=== PATIENT | female | born 1975 | race Caucasian/White ===

== ENCOUNTER 2018-12-10 11:24 | Emergency (ER) | payer SELFPAY ==
[2018-12-10 11:40] VITALS: BP 131/93; PULSE 84; RESP 16; TEMP 36.6; O2SAT 100
--- NOTE | 2018-12-10 11:50 | DI.RAD_ITS ---
SYMPTOMS/DIAGNOSIS: TRAUMA, ANKLE AND FOOT PAIN RIGHT ANKLE AND RIGHT FOOT: Three views of the ankle and three views of the foot were obtained. There appears to be soft tissue swelling of the ankle. There are marked degenerative changes of the joints of the ankle. No acute fracture seen. No fracture seen involving the bones of the foot.
--- NOTE | 2018-12-10 11:58 | ED.GENADUL_ITS ---
Discharge Plan Disposition Patient Disposition: HOME Condition: Stable Discharge Details Chief Complaint: Orthopedic Clinical Impression: Ankle pain Primary Care Provider: Nicko Wadsworth ED Provider: Karla Rosales Home Meds and New Rx's Prescriptions: Continued naproxen 375 MG tablet,delayed release (DR/EC) 375 mg PO BID PRNQty: 14 RF: 0 Discharge Instructions Instructions: Ankle Sprain (ED) Additional Instructions: Please return immediately to the emergency department if you develop any new or worsening symptoms or if you become otherwise concerned. It is extremely important that you make an appointment to be seen in follow-up for this visit by your primary care doctor soon as possible. Referrals: Nicko Wadsworth, DO [Primary Care Provider] - Discharge Data Discharge Date/Time-TO BE ENTERED AT DEPARTURE: 12/10/18 13:43 Medical Decision Making Rosi Morales is a 42 y/o woman with a history of kidney stones presenting to the emergency department with ankle pain after mechanical fall JPTA. On exam Pt is well and non-toxic appearing. DP pulses intact and symmetric. Right ankle with TTP over medial and lateral malleolus with edema over medial mallelous, also with TTP diffusely over dorsal foot. Cannot range ankle 2/2 pain. No skin wound. Ranges toes without issue. No midshaft or proximal tibia/fibula TTP. Concern for ankle/foot fx vs sprain. Exam/hx not c/w physiologic/non-mechanical fall, infectious etiology, significant trauma to the head/neck/thorax/abdomen, maisonneuve fx. Plan for xrays. Xrays negative. Pt reports that she has her own crutches in the car and does need another set. Plan for ankle brace, weightbearing as tolerated, outpt f/u with PCP/ortho. I had a lengthy discussion with the pt re: RTED precautions, home care, and importance of outpt f/u. Pt vebalized understanding of the plan and is amenable, Pt discharged to home with clear plan for outpt f/u. All questions were answered. Medical Records Medical records reviewed: Yes I reviewed the patient's medical records. Imaging Data Radiologic Study: Attestation: I personally reviewed and interpreted this imaging study as follows: Radiologist's impression: RIGHT ANKLE AND RIGHT FOOT: Three views of the ankle and three views of the foot were obtained. There appears to be soft tissue swelling of the ankle. There are marked degenerative changes of the joints of the ankle. No acute fracture seen. No fracture seen involving the bones of the foot. HPI General Mode of arrival: wheelchair . Date/Time Provider Initiated Documentation: 12/10/18 11:50 . Limitations to Documentation: no limitations . Information obtained by: patient, family, RN notes reviewed and old records reviewed . HPI Narrative: Rosi Morales is a 42 y/o woman with a history of kidney stones presenting to the emergency department with ankle pain. Patient reports that last night she tripped while going downstairs, and fell one step down to the ground. She reports ankle pain since the fall. Denies any other pain or injury, states that she did not hit her head, no LOC. Pt reports that she lost her balance and fell, no preceding symptoms. No prior injuries to the ankle. Related Data Home Medications Medication Instructions Recorded Confirmed naproxen 375 mg PO BID PRN #14 tablet. 11/28/17 12/10/18 Previous Rx's Medication Instructions Recorded naproxen 375 mg PO BID PRN #14 tablet. 11/28/17 Allergies Allergy/AdvReac Type Severity Reaction Status Date / Time No Known Allergies Allergy Unverified 12/10/18 11:46 General Stated Complaint: Orthopedic ALEJANDRA: 4 Review of Systems Review of Systems Constitutional: denies fevers Eyes: denies eye pain ENT: denies facial pain, dental pain, sore throat Cardiovascular: denies chest pain Respiratory: denies SOB GI: denies abdominal pain, vomiting : denies flank pain MSK: denies back pain, neck pain, arthralgias other than right ankle Skin: denies skin wound Neuro: denies headaches, numbness, weakness [facility], LAT[facility] Medical History Tubal ligation status (Acute) Kidney stone (Chronic) Surgical History Hx of appendectomy (Chronic) Social History Smoking/Tobacco Use Status: Current every day Tobacco Type: e-cigarettes Alcohol Intake: never Drug use: Occasionally Substance use type: marijuana Do you feel safe at home: Yes Do you feel safe in your relationship?: Yes Exam Narrative Exam Narrative: Constitutional: well and [id number], pleasant, conversi ng normally HENT: head atraumatic/normocephalic/normal inspection, mucous membranes moist Eyes: conjunctiva normal, sclera normal, pupils 3mm b/l Neck: no stridor, normal ROM, trachea midline Resp: normal work of breathing Cardio: normal rate, normal rhythm Skin: warm, dry, normal color, no rash Neuro: alert, not altered, grossly non-focal, normal tone Ext: DP pulses intact and symmetric. Right ankle with TTP over medial and lateral malleolus with edema over medial mallelous, also with TTP diffusely over dorsal foot. Cannot range ankle 2/2 pain. No skin wound. Ranges toes without issue. No midshaft or proximal tibia/fibula TTP. Psych: normal mood, normal affect, normal behavior Course Vital Signs Temperature 36.6 C 12/10/18 11:40 Pulse 84 12/10/18 11:40 Respiratory Rate 16 12/10/18 11:40 Blood Pressure 131/93 H 12/10/18 11:40 Pulse Oximetry 100 12/10/18 11:40 Temperature 36.6 C 12/10/18 11:40 Temperature Source Skin 12/10/18 11:40 Pulse 84 12/10/18 11:40 Respiratory Rate 16 12/10/18 11:40 Respiratory Effort Non-Labored 12/10/18 11:44 Blood Pressure 131/93 H 12/10/18 11:40 Blood Pressure Position Sitting 12/10/18 11:40 Pulse Oximetry 100 12/10/18 11:40 Oxygen Delivery Method Room Air 12/10/18 11:40 Oxygen Flow Rate 0 12/10/18 11:40 End Tidal Co2 8 12/10/18 11:40
[2018-12-10] MEDS: Ibuprofen 400 MG TAB PO (13:26)
[2018-12-10 13:35] VITALS: BP 131/93; PULSE 84; RESP 16; TEMP 36.6; O2SAT 100
== END 2018-12-10 13:43 | disposition home or self-care (01) ==
LOC: ER 13:54
PROVIDERS: Emergency Provider Student in an Organized Health Care Education/Training Program; PCP Emergency Medicine
DX: M79.671 Pain in right foot (principal); M25.571 Pain in right ankle and joints of right foot; W10.8XXA Fall (on) (from) other stairs and steps, initial encounter
CPT/HCPCS: 29515; 99284; 73610; 73630; 99282; L1902

== ENCOUNTER 2022-10-12 12:56 | Outpatient (CLI) | payer SELFPAY ==
[2022-10-13 10:15] LABS: HBs Antibody, Quant 3.8 mIU/mL (See Note); Hepatitis B Surface Ab Negative (See Note)
[2022-10-13 10:39] LABS: Varicella IgG Antibody Positive (See Note)
[2022-10-13 10:43] LABS: Measles IgG Antibody Positive (See Note); Mumps Antibody IgG Positive (See Note); Rubella IgG Ab (UVM) Positive (See Note)
[2022-10-14 13:30] LABS: TB Interpretation Negative (Negative)
== END 2022-10-12 12:57 | disposition home or self-care (01) ==
LOC: LBO 12:59
PROVIDERS: Visit Provider Nurse Practitioner Family
DX: Z02.1 Encounter for pre-employment examination (principal); Z11.59 Encounter for screening for other viral diseases; Z11.1 Encounter for screening for respiratory tuberculosis; Z01.84 Encounter for antibody response examination
CPT/HCPCS: 36415; 86706; 86787; 86480; 86735; 86762; 86765

== ENCOUNTER 2023-07-15 07:10 | Emergency (ER) | payer OTHER, SELFPAY ==
--- NOTE | 2023-07-15 07:13 | ED.GENADUL_ITS ---
HPI General Stated Complaint: [facility] Mode of arrival: ambulatory. ALEJANDRA: 4 Date/Time Provider Initiated Documentation: 07/15/23 07:13. Limitations to Documentation: no limitations. Information obtained by: patient and family. HPI Narrative: Time seen was 745 in bed 8. The patient is a 47-year-old -0-1-2 who is perimenopausal and works here. 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 She tells me she is had 10 days of vaginal bleeding approximately 1 pad every 2 hours. She was seen at [facility] and was told she might need an ablation but was not started on any hormonal therapy. She is complaining of feeling weak and dizzy and some lower abdominal cramping. She denies any chest pain or shortness of breath. Her pain is 6 out of 10 in s everity and located in the lower abdomen. It comes and goes but she denies any aggravating or alleviating factors. She does feel weak and dizzy more when she stands. She tells me that her abdominal/pelvic pain radiates to the low back. She has had a bilateral tubal ligation. The patient denies any other bleeding such as epistaxis or gum bleeding. No easy bruising. She is not on therapeutic anticoagulants. Related Data Home Medications Medication Instructions Recorded Confirmed norethindrone acetate 5 mg tablet 5 mg PO BID 7 days #90 tabs 07/15/23 sulfamethoxazole 800 1 tab PO Q12H #14 tabs 07/15/23 mg-trimethoprim 160 mg tablet (Bactrim DS) Previous Rx's Medication Instructions Recorded norethindrone acetate 5 mg tablet 5 mg PO BID 7 days #90 tabs 07/15/23 sulfamethoxazole 800 1 tab PO Q12H #14 tabs 07/15/23 mg-trimethoprim 160 mg tablet (Bactrim DS) Allergies Allergy/AdvReac Type Severity Reaction Status Date / Time No Known Allergies Allergy Unverified 07/15/23 07:21 Review of Systems Narrative: see hpi PFSH All Active Problems Abnormal vaginal bleeding (Acute) UTI (urinary tract infection) (Acute) Medical History Kidney stone Surgical History Tubal ligation status Hx of appendectomy Social History Smoking/Tobacco Use Status: Current every day Tobacco Type: e-cigarettes Smoking risk assessment performed?: Yes Alcohol Intake: never Drug use: Occasionally Substance use type: marijuana Do you feel safe at home: Yes Do you feel safe in your relationship?: Yes Exam Const General: cooperative, healthy appearing, comfortable, no acute distress, well developed, well groomed and well hydrated Nutritional Appearance: average body habitus and well nourished Orientation: alert, awake and oriented x3 HENMT Head: normal to inspection, normocephalic and atraumatic Ears: hearing grossly normal bilaterally and external ears normal General nose exam: external nose normal, nares normal and no nasal discharge Face and sinus: normal facial exam, sinuses nontender and face symmetric Mouth: oral mucosae normal, lip normal, tongue normal, oropharynx normal, moist mucous membranes and other (Normal phonation. The patient is handling secretions.) Throat: posterior oropharynx normal and uvula midline Eyes General: appearance normal, both eyes and all related structures Eyelids: eyelids normal Conjunctivae: conjunctivae normal Sclera: sclerae normal Cornea: corneas normal Pupils: PERRL EOM: EOM intact bilaterally and No nystagmus Neck Neck: normal visual inspection, full ROM, no lymphadenopathy, no meningeal signs, trachea midline and supple Lymphatic: no lymphadenopathy noted Chest Chest: normal inspection of the chest Resp Effort & Inspection: normal respiratory effort, able to speak in complete sentences, no audible wheezes, no nasal flaring, no respiratory distress, no retractions, no stridor, not tachypneic, no tracheal deviation, no use of accessory muscles, No prolonged expiratory phase and other (Normal inspiratory to expiratory ratio.) Auscultation: clear to auscultation bilaterally, no rales, no rhonchi, no wheezes and no rubs Tactile Fremitus: tactile fremitus absent Cardio Jugular venous pressure: no JVD Palpation: normal PMI Rate: regular rate Rhythm: regular rhythm Heart Sounds: S1 normal, S2 normal, no gallops, no murmurs and no rubs GI Inspection: normal to inspection and non-distended Palpation: soft, no hepatosplenomegaly, no guarding and nontender Percussion: normal to percussion Auscultation: normal bowel sounds General: No CVA tenderness Back/Spine/Pelvis Back: no CVA tenderness and No back tenderness Cervical Spine: normal cervical lordosis, cervical ROM normal, No cervical muscular tenderness, No pain with cervical ROM, No cervical spinal tenderness and No step off deformity Thoracic/Lumbar Spine: thoracic and lumbar spine normal to inspection, No thoracic spinal tenderness and No lumbar spinal tenderness Pelvis: no pain with anterior-posterior compression and no pain with lateral compression Skin General skin exam: no rashes or lesions noted, turgor normal, no petechiae, no purpura and other (Skin is normal for ethnicity.) Lesions: no lesions Rashes: no rashes Trauma: no lacerations or abrasions Neuro General: patient alert, patient awake, patient oriented x3, moves all extremities, no meningeal signs, no focal motor deficits and CN's II-XI intact bilaterally Cranial Nerves: CN's II-XI intact bilaterally, PERRL, accommodation normal, EOM intact bilaterally, no nystagmus, facial strength normal, tongue midline, hearing normal and no nystagmus Cognition: normal cognition Speech: speech normal Gait: normal gait Motor: muscle tone normal throughout and strength 5/5 throughout Sensory Exam: no sensory deficits noted Extrem General: normal to inspection, full ROM, capillary refill normal, no clubbing, cyanosis or edema and no calf tenderness Psych Appearance: grossly normal Affect: normal affect Attitude: cooperative Thought Process: normal Thought Content: normal Insight: insight good Judgment: judgment good Other: The patient appears to have capacity make medical decisions. Course 9:10 AM I have spoken with Dr. Phelps from [facility]. She recommended the patient be started on Aygestin 5 mg every 12 hours for the bleeding. She suggested that the patient increase to 10 mg twice daily after 2 to 3 days if the bleeding continues. I notified the patient who would like to follow-up with Dr. Phelps this week. I have also notified her that she has evidence of a urinary tract infection. She has had 1 distantly in the past but denies any dysuria currently. She has no known drug allergies and I will start her on Bactrim DS 1 p.o. twice daily. I have advised patient to take a probiotic. I have advised her that if she is asymptomatic, she can discontinue after 3 days. I have advised her that a urine culture is pending. The patient requested a work note. The patient and her voiced understanding agreement with the discharge plan. All her questions and concerns were addressed prior to discharge. Medical Decision Making This is a 47-year-old female who presents with 10 days of significant vaginal bleeding. She was seen at [facility] and no medication was given. She was told she might need an ablation. 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 She is complaining of generalized weakness and dizziness as well as bilateral lower abdominal cramping which is 5 out of 10 in severity. The dizziness is worse with standing. She tells me that she is saturating a pad every 2 hours. She does have a history of a bilateral tubal ligation and appendectomy. She denies any chest pain or shortness of breath. She does not have a history of anemia. She is not on therapeutic anticoagulants. Her dizziness is worse with standing. She does. She is perimenopausal. My plan is to obtain IV access and give her IV fluids. We will type and screen her. I will check a to rule out miscarriage or ectopic. We will check a CBC for anemia leukocytosis and left shift. We will check her electrolytes and renal function as well as a urinalysis. I will likely consult [facility] after her results. I do not see an indication for CT scanning and ultrasound is not available because it is the weekend. Differential Diagnosis Differential Diagnosis: Dysfunctional uterine bleeding, perimenopausal bleeding, anemia, coagulopat Medical Records Medical records reviewed: Yes I reviewed the patient's medical records. Lab Data Lab results reviewed: Yes I reviewed the patient's lab results. Lab results narrative: Normal H&H Quality:SDOH Health Related Social Needs: No Data to Display Discharge Plan Disposition Patient Disposition: Home Condition: Improving Discharge Details Clinical Impression: UTI (urinary tract infection), Abnormal vaginal bleeding Primary Care Provider: None,None ED Provider: Marquita Carney Home Meds and New Rx's Prescriptions: New norethindrone acetate 5 mg tablet 5 mg PO BID 7 Days Qty: 90 0RF Rx Instructions: If bleeding continues after 2 to 3 days increase to 2 tablets (10 mg) every 12 hours. sulfamethoxazole-trimethoprim [Bactrim DS] 800-160 mg tablet 1 tab PO Q12H Qty: 14 0RF Rx Instructions: May stop after 3 days if symptoms have resolved Discontinued naproxen 375 MG tablet,delayed release (DR/EC) 375 mg PO BID PRNQty: 14 0RF Discharge Instructions Instructions: Abnormal (Dysfunctional) Uterine Bleeding (ED), Urinary Tract Infection in Women (ED) Additional Instructions: 1. Start norethindrone 5 mg twice a day for vaginal bleeding. You may increase to 2 tablets (10 mg) twice a day after 2 to 3 days, if bleeding has not improved. You should get a call from Dr. Phelps's office regarding a follow-up appointment next week. Tell her that we started you on an antibiotic for urinary tract infection and the culture was pending at the time of discharge. 2. Start Bactrim DS 1 tablet every 12 hours for 7 days. You should take a prob iotic while on antibiotics. This is for urinary tract infection. If you do not have any burning or discomfort with urination after 3 days you may stop the antibiotics. 3. Return here for any new or worrisome symptoms such as dizziness chest pain or shortness of breath. Stand Alone Forms: Work Release Discharge Data Discharge Date/Time-TO BE ENTERED AT DEPARTURE: 07/15/23 09:53 Discharge Physician: Marquita Carney
[2023-07-15 07:18] VITALS: BP 142/73; PULSE 71; RESP 18; TEMP 36.6; O2SAT 96
[2023-07-15] MEDS: Normal Saline 1,000 ML 1000 ML IV (07:49)
[2023-07-15 07:52] LABS: Bilirubin Large (Negative); Blood Large (Negative); Clarity Cloudy (Clear); Glucose 100 mg/dL (Negative); Ketones 80 mg/dL (Negative); Leukocyte Esterase Large (Negative); Nitrite Positive (Negative); Specific Gravity <= 1.005 (1.005-1.025); Urobilinogen >=8.0 mg/dL (Up to 0.2); pH >= 9.0 (5-8)
[2023-07-15 07:52] LABS: Abs Immature Grans 0.02 10^3/uL (0.0-0.06); Absolute Basophil Count 0.03 10^3/uL (0.0-0.2); Absolute Eosinophil Count 0.13 10^3/uL (0.0-0.7); Absolute Lymphocyte Count 1.93 10^3/uL (1.2-3.4); Absolute Monocyte Count 0.79 10^3/uL (0.1-0.8); Absolute Neutrophil Count 6.92 10^3/uL (1.2-6.7); Basophils % 0.3; Eosinophils % 1.3; HCT 39.5 % (36.0-46.0); HGB 13.5 g/dL (11.2-15.7); Immature Grans % 0.2; Lymphocytes % 19.7; MCH 31.3 pg (27.0-33.0); MCHC 34.2 % (32.0-36.0); MCV 91 fL (80-95); MPV 10.5 fL (8.0-11.0); Neutrophils % 70.5; Platelet Count 318 10^3/uL (130-400); RBC 4.32 10^6/uL (3.93-5.22); RDW 13.7 % (11.7-14.6); RDW-SD 46.9 fL; WBC 9.82 10^3/uL (4.4-10.8)
[2023-07-15 07:57] LABS: C & S Indicated? Yes; RBC >50 HPF (0-2); WBC >50 HPF (0-5)
[2023-07-15] MEDS: ACETAMINOPHEN 1,000 MG/100 ML BTL 400 MG IVPB (08:01)
[2023-07-15 08:10] LABS: ALT 17 U/L (14-59); AST 16 U/L (15-37); Albumin 3.3 g/dL (3.4-5.0); Alkaline Phosphatase 55 U/L (46-116); Anion Gap 5.6 mmol/L (3-11); BUN 16 mg/dL (7-18); Bilirubin, Total 0.3 mg/dL (0.2-1.0); CO2 26.4 mmol/L (21.0-32.0); CREATININE 0.8 mg/dL (0.55-1.02); Calcium 8.5 mg/dL (8.5-10.1); Chloride 106 mmol/L (98-107); Estimated GFR 90.27 (mL/min/1.73m2); Glucose 98 mg/dL (74-106); Potassium 4.4 mmol/L (3.5-5.1); Sodium 138 mmol/L (136-145); Total Protein 6.8 g/dL (6.4-8.2)
[2023-07-15 08:42] VITALS: BP 114/71; PULSE 65; TEMP 36.8; O2SAT 99
--- NOTE | 2023-07-15 09:14 | NUR.NOTE ---
Referral faxed to [facility] for vaginal bleeding, UTI; for next week. Consulted with Dr Phelps. Referral given to Care Management for needs PCP, establish care; routine follow up. Nursing Note:
[2023-07-15] MEDS: Norethindrone 5 MG TAB PO (09:23)
[2023-07-15] MEDS: Sulfameth/Trimeth DS TAB 1 TAB PO (09:23)
== END 2023-07-15 09:53 | disposition home or self-care (01) ==
PROVIDERS: Emergency Provider Emergency Medicine Emergency Medical Services
DX: N93.9 Abnormal uterine and vaginal bleeding, unspecified (principal); N39.0 Urinary tract infection, site not specified; R42 Dizziness and giddiness; M62.81 Muscle weakness (generalized)
CPT/HCPCS: 36415; 80053; 81025; 86850; 86900; 86901; 87077; 96361; 96374; 99284; 81003; 81015; 85025; 87086; 87186; 99283; J0131

== ENCOUNTER 2023-07-17 07:41 | Emergency (ER) | payer OTHER, SELFPAY ==
[2023-07-17] VITALS (27 sets, daily range): BP systolic 115–141; BP diastolic 55–68; PULSE 58–89; RESP 7–22; O2SAT 95–100
--- NOTE | 2023-07-17 07:30 | RT.EKG_ITS ---
APPROVED REPORT Exam: Resting ECG Reason for Exam: Dizzy/Palpatations Patient Location: E HR:74 bpm ECG Measurements Heart Rate 74 AXIS W[place] [id number] P [id number] QRSd 84 QRS 45 QT 391 T 14 QTc 436 Conclusion sinus 74bpm with artifact
--- NOTE | 2023-07-17 07:45 | DI.CT_ITS ---
Exam(s) CT CHEST PE CTA EXAM: CT CHEST PE CTA CLINICAL HISTORY: chest pain, shortness of breath, palpitations. TECHNIQUE: Imaging Protocol: Axial CT angiography was performed with multi-slice acquisition and mu lti-planar and/or 3D reconstructions. CONTRAST MATERIAL: Intravenous: Omnipaque 350 contrast volume:85 mL COMPARISON: No exams were available for comparison FINDINGS: Tracheobronchial tree: Patent where visualized. Pulmonary parenchyma: No consolidation or dominant measurable mass. No architectural distortion. Pulmonary Arteries: No evidence of filling defect to suggest pulmonary emboli. Mediastinum and [place]: No dominant adenopathy or fluid collection. The esophagus is unremarkable. Visualized thyroid gland: Unremarkable. Pleura: No effusion or pneumothorax. Heart: The heart is not dilated. No coronary artery calcifications are seen. No pericardial effusion. There is no evidence of right heart strain. Aorta: Thoracic aorta non-dilated. No evidence of dissection. Atherosclerosis. Upper abdomen: Unremarkable. Soft tissues: Unremarkable. Bones: Within normal limits for the patient's age. IMPRESSION: 1. No evidence of pulmonary embolism, thoracic aortic dissection or aneurysm. 2. Findings were discussed with the emergency department at 10:13 a.m. on 07/17/2023. RADIATION DOSE DELIVERED: 509.28mGy.cm Total DLP DATA REPOSITORY: All CT scans at this facility are submitted to the National Radiology Data Registry (NRDR) Dose Index Registry (DIR) with the [employer] (ACR). RADIATION OPTIMIZATION: All CT scans at this facility use at least one of these dose optimization te chniques: automated exposure control; mA and/or kV adjustment per patient size (includes targeted exa ms where dose is matched to clinical indication); or iterative reconstruction.
--- NOTE | 2023-07-17 07:45 | RT.EKG_ITS ---
APPROVED REPORT Exam: Resting ECG Reason for Exam: Dizzy/Palpations Patient Location: E HR:69 bpm ECG Measurements Heart Rate 69 AXIS [place] 135 P 53 QRSd 91 QRS 53 QT 372 T 13 QTc 397 Conclusion Sinus rhythm...normal P axis, V-rate 60- 99
--- NOTE | 2023-07-17 07:54 | W.ED.GENAD ---
HPI General Stated Complaint: Chest Pain Mode of arrival: ambulatory. ALEJANDRA: 2 Date/Time Provider Initiated Documentation: 07/17/23 07:53. Limitations to Documentation: no limitations. Information obtained by: patient. HPI Narrative: 47-year-old female presents with chief complaint of chest discomfort. Patient notes chest pain with radiation to her left shoulder that started last night. She had associated shortness of breath and some intermittent dizziness. Patient notes abnormal vaginal bleeding with cramping that started about 11 days ago. She was seen here in the emergency department 2 days ago for this and was started on hormonal therapy. She notes bleeding has significantly improved. Patient denies abdominal pain. No leg swelling or calf pain. No recent long distance travel, surgery or immobility. Related Data Home Medications Medication Instructions Recorded Confirmed norethindrone acetate 5 mg tablet 5 mg PO BID 7 days #90 tabs 07/15/23 07/17/23 sulfamethoxazole 800 1 tab PO Q12H #14 tabs 07/15/23 07/17/23 mg-trimethoprim 160 mg tablet (Bactrim DS) Previous Rx's Medication Instructions Recorded norethindrone acetate 5 mg tablet 5 mg PO BID 7 days #90 tabs 07/15/23 sulfamethoxazole 800 1 tab PO Q12H #14 tabs 07/15/23 mg-trimethoprim 160 mg tablet (Bactrim DS) Allergies Allergy/AdvReac Type Severity Reaction Status Date / Time No Known Allergies Allergy Unverified 07/17/23 07:50 Review of Systems All systems reviewed & are unremarkable except as noted in HPI and below Constitutional Constitutional: Denies fever(s) Cardiovascular Cardiovascular: Reports as per HPI Respiratory Respiratory: Reports as per HPI PFSH All Active Problems Chest pain (Acute) Abnormal vaginal bleeding (Acute) Dizziness (Acute) Shortness of breath (Acute) Abnormal vaginal bleeding (Acute) UTI (urinary tract infection) (Acute) Medical History Kidney stone Surgical History Tubal ligation status Hx of appendectomy Social History Smoking/Tobacco Use Status: Current every day Tobacco Type: e-cigarettes Smoking risk assessment performed?: Yes Alcohol Intake: never Drug use: Occasionally Substance use type: marijuana Housing: house Do you feel safe at home: Yes Do you feel safe in your relationship?: Yes Exam Const General: cooperative and no acute distress HENMT Mouth: moist mucous membranes Eyes Conjunctivae: normal conjunctivae Sclera: normal sclerae Resp Auscultation: clear to auscultation bilaterally, no rales, no rhonchi and no wheezes Cardio Rate: regular rate and not tachycardic Rhythm: regular rhythm Heart Sounds: no gallops, no murmurs and no rubs GI Palpation: soft, not firm, no guarding, no masses, not rigid and nontender Skin General skin exam: no rashes or lesions noted Neuro General: patient alert, patient awake and tone normal Extrem General: no calf tenderness and no edema Psych Appearance: grossly normal Mental Status: mental status grossly normal Speech and Movement: speech and movement normal Course Vital Signs Vital signs: Vital Signs Pulse 89 07/17/23 07:43 Respiratory Rate 22 07/17/23 07:43 Blood Pressure 141/63 H 07/17/23 07:43 Pulse Oximetry 100 07/17/23 07:43 Temperature Source Skin 07/17/23 07:43 Pulse 89 07/17/23 07:43 Respiratory Rate 22 07/17/23 07:43 Blood Pressure 141/63 H 07/17/23 07:43 Blood Pressure Position Sitting 07/17/23 07:43 Pulse Oximetry 100 07/17/23 07:43 Oxygen Delivery Method Room Air 07/17/23 07:43 Oxygen Flow Rate 0 07/17/23 07:43 Pain Level 3 07/17/23 07:43 Medical Decision Making 47yo female presents with chest pain and shortness of breath as well as dizziness started last night, abnormal heavy vaginal bleeding over the past 11 days that has improved significantly after being seen here 2 days ago and started on hormonal therapy. Patient is hemodynamically stable. She is saturating well in no respiratory distress. EKG was reviewed and interpreted by me: Initial EKG was significant artifact but appears to be sinus rhythm, please see report. Repeat EKG shows sinus rhythm 69 bpm, no STEMI. Nondiagnostic. Considered anemia given ongoing vaginal bleeding. Hemoglobin normal. Initial troponin normal. Second delta troponin at 3 hours normal and unchanged. Patient with hypomagnesemia magnesium of 1.7. Patient was given magnesium 1 g IV. She was noted be feeling better and was ambulating without any dysfunction. Patient garth hemodynamically stable. No chest pain at this time. Plan for discharge with close outpatient follow-up. Patient should be assessed for outpatient stress test. Patient was also recommended [facility] with [facility] regarding abnormal vaginal bleeding. Lab Data Lab results reviewed: Yes I reviewed the patient's lab results. Labs: Laboratory Tests Range/Units 07/17/23 07/17/23 07/17/23 08:00 08:07 08:18 WBC (4.4-10.8) 10^3/uL 11.79 H RBC (3.93-5.22) 10^6/uL 4.90 Hgb (11.2-15.7) g/dL 15.5 D Hct (36.0-46.0) % 44.6 MCV (80-95) fL 91 MCH (27.0-33.0) pg 31.6 MCHC (32.0-36.0) % 34.8 RDW (11.7-14.6) % 13.9 Plt Count (130-400) 10^3/uL 358 MPV (8.0-11.0) fL 10.6 Immature Gran % 0.3 Neutrophils % 63.9 Lymphocytes % 27.8 Monocytes % 6.1 Eosinophils % 1.4 Basophils % 0.5 Nucleated RBC % (0.0-0.3) % 0.0 Absolute Neutrophils (1.2-6.7) 10^3/uL 7.53 H Absolute Lymphocytes (1.2-3.4) 10^3/uL 3.28 Absolute Monocytes (0.1-0.8) 10^3/uL 0.72 Absolute Eosinophils (0.0-0.7) 10^3/uL 0.17 Absolute Basophils (0.0-0.2) 10^3/uL 0.06 Sodium Cancelled 140 Potassium Cancelled 4.1 Chloride Cancelled 107 Carbon Dioxide Cancelled 24.7 Anion Gap Cancelled 8.3 BUN Cancelled 12 Creatinine Cancelled 1.0 Est GFR (CKD-EPI 2020) Cancelled 69.06 Glucose Cancelled 95 Calcium Cancelled 8.3 L Magnesium Cancelled 1.7 L Total Bilirubin Cancelled 0.4 AST Cancelled 14 L ALT Cancelled 15 Alkaline Phosphatase Cancelled 44 L Troponin I Cancelled < 50 Total Protein Cancelled 6.2 L Albumin Cancelled 3.0 L COVID-19 Source Nasal/Nares SARS-CoV-2 (PCR) (Negative) Negative Patient ABO/Rh Cancelled Antibody Screen Cancelled Range/Units 07/17/23 10:42 WBC (4.4-10.8) 10^3/uL RBC (3.93-5.22) 10^6/uL Hgb (11.2-15.7) g/dL Hct (36.0-46.0) % MCV (80-95) fL MCH (27.0-33.0) pg MCHC (32.0-36.0) % RDW (11.7-14.6) % Plt Count (130-400) 10^3/uL MPV (8.0-11.0) fL Immature Gran % Neutrophils % Lymphocytes % Monocytes % Eosinophils % Basophils % Nucleated RBC % (0.0-0.3) % Absolute Neutrophils (1.2-6.7) 10^3/uL Absolute Lymphocytes (1.2-3.4) 10^3/uL Absolute Monocytes (0.1-0.8) 10^3/uL Absolute Eosinophils (0.0-0.7) 10^3/uL Absolute Basophils (0.0-0.2) 10^3/uL Sodium Potassium Chloride Carbon Dioxide Anion Gap BUN Creatinine Est GFR (CKD-EPI 2020) Glucose Calcium Magnesium Total Bilirubin AST ALT Alkaline Phosphatase Troponin I < 50 Total Protein Albumin COVID-19 Source SARS-CoV-2 (PCR) (Negative) Patient ABO/Rh Antibody Screen Quality:SDOH Health Related Social Needs: No Data to Display Discharge Plan Disposition Patient Disposition: Home Condition: Stable Discharge Details Clinical Impression: Shortness of breath, Dizziness, Abnormal vaginal bleeding, Chest pain Primary Care Provider: None,None ED Provider: Sourav Rosales Home Meds and New Rx's Prescriptions: Continued norethindrone acetate 5 mg tablet 5 mg PO BID 7 Days Qty: 90 0RF Rx Instructions: If bleeding continues after 2 to 3 days increase to 2 tablets (10 mg) every 12 hours. sulfamethoxazole-trimethoprim [Bactrim DS] 800-160 mg tablet 1 tab PO Q12H Qty: 14 0RF Rx Instructions: May stop after 3 days if symptoms have resolved Discharge Instructions Instructions: Chest Pain (ED), Dizziness (ED) Additional Instructions: Please follow-up with your primary care physician to schedule a follow-up appointment and outpatient cardiac stress testing. Call today. Please follow-up with gynecology regarding your abnormal vaginal bleeding. Return to the ER immediately for any worsening or new concerning symptoms. Referrals: [facility] [Provider Group]
[2023-07-17 08:07] LABS: Source Nasal/Nares
[2023-07-17 08:09] LABS: Abs Immature Grans 0.04 10^3/uL (0.0-0.06); Absolute Basophil Count 0.06 10^3/uL (0.0-0.2); Absolute Lymphocyte Count 3.28 10^3/uL (1.2-3.4); Absolute Monocyte Count 0.72 10^3/uL (0.1-0.8); Absolute Neutrophil Count 7.53 10^3/uL (1.2-6.7); Basophils % 0.5; Eosinophils % 1.4; HCT 44.6 % (36.0-46.0); HGB 15.5 g/dL (11.2-15.7); Immature Grans % 0.3; Lymphocytes % 27.8; MCH 31.6 pg (27.0-33.0); MCHC 34.8 % (32.0-36.0); MCV 91 fL (80-95); MPV 10.6 fL (8.0-11.0); Monocytes % 6.1; Neutrophils % 63.9; Platelet Count 358 10^3/uL (130-400); RDW 13.9 % (11.7-14.6); RDW-SD 47.4 fL; WBC 11.79 10^3/uL (4.4-10.8)
[2023-07-17 08:11] LABS: Absolute Eosinophil Count 0.17 10^3/uL (0.0-0.7)
[2023-07-17 08:46] LABS: COVID-19 PCR Negative (Negative)
[2023-07-17 08:46] LABS: ALT 15 U/L (14-59); AST 14 U/L (15-37); Alkaline Phosphatase 44 U/L (46-116); Anion Gap 8.3 mmol/L (3-11); BUN 12 mg/dL (7-18); Bilirubin, Total 0.4 mg/dL (0.2-1.0); CO2 24.7 mmol/L (21.0-32.0); Calcium 8.3 mg/dL (8.5-10.1); Chloride 107 mmol/L (98-107); Estimated GFR 69.06 (mL/min/1.73m2); Glucose 95 mg/dL (74-106); Magnesium 1.7 mg/dL (1.8-2.4); Potassium 4.1 mmol/L (3.5-5.1); Sodium 140 mmol/L (136-145); Total Protein 6.2 g/dL (6.4-8.2); Troponin I < 50 ng/L (<or=60)
[2023-07-17] MEDS: Lactated Ringers 500 ML IV (08:48)
[2023-07-17] MEDS: MAGNESIUM SULFATE 1 GM/100 ML BAG IVPB (09:06)
[2023-07-17] MEDS: Normal Saline - Diluent 50 ML VIAL IJ (09:15)
[2023-07-17] MEDS: Normal Saline Flush 10 ML SYR IVP (09:16)
[2023-07-17] MEDS: Omnipaque 350 MG/ML 100 ML BTL IJ (09:20)
[2023-07-17 11:06] LABS: Troponin I < 50 ng/L (<or=60)
--- NOTE | 2023-07-17 14:25 | NUR.NOTE ---
Referral faxed to [facility] for Abnormal Bleeding to be seen some time this week. Referral given to [facility] to obtain help to establish primary care and to follow up with Chest Pain
== END 2023-07-17 11:41 | disposition home or self-care (01) ==
PROVIDERS: Emergency Provider Student in an Organized Health Care Education/Training Program
DX: R07.9 Chest pain, unspecified (principal); R42 Dizziness and giddiness; R06.02 Shortness of breath; N93.9 Abnormal uterine and vaginal bleeding, unspecified
CPT/HCPCS: 36415; 71275; 80053; 86850; 86900; 86901; 87635; 93005; 96365; 99285; 83735; 84484; 85025; 93010; 99283; J3475; J3490